=== PATIENT | female | born 1970 | race Caucasian/White ===

== ENCOUNTER 2021-03-16 09:38 | Day surgery (SDC) | payer OTHER, SELFPAY ==
[~2021-03-16] VITALS: Ht 162.6 cm; Wt 59.0 kg
[2021-03-16] MEDS ORDERED: fentaNYL citrate 0.05 MG/ML VIAL ONE (10:16)
[2021-03-16] MEDS ORDERED: LIDOCAINE 2% 100 MG/5 ML UJET TP ONE (10:16)
[2021-03-16] MEDS ORDERED: fentaNYL citrate 0.05 MG/ML VIAL IVP ONE (10:35)
== END 2021-03-16 11:17 | disposition home or self-care (01) ==
LOC: MMU 09:38 → MDS 09:38
PROVIDERS: ATTEND Internal Medicine Gastroenterology
DX: Z12.11 Encounter for screening for malignant neoplasm of colon (principal); D12.4 Benign neoplasm of descending colon; Z20.822 Contact with and (suspected) exposure to COVID-19
CPT/HCPCS: 45385; 81025; 87426; J3010